=== PATIENT | female | born 2000 | race Caucasian/White ===

== ENCOUNTER 2018-01-04 17:21 | Emergency (ER) | payer OTHER ==
[~2018-01-04] VITALS: Ht 157.5 cm; Wt 68.0 kg
[2018-01-04 18:36] LABS: ABSOLUTE BASOPHIL COUNT 0.1 /CUMM (0.0-0.2); ABSOLUTE EOSINOPHIL COUNT 0.5 /CUMM (0.0-0.7); ABSOLUTE GRANULOCYTE CT 7.1 /CUMM (1.4-6.5); ABSOLUTE LYMPH COUNT 1.8 /CUMM (1.2-3.4); ABSOLUTE MONOCYTE COUNT 0.8 /CUMM (0.10-0.60); BASOPHIL % 0.5 % (0.0-2.0); EOSINOPHIL % 4.5 % (0-5); HEMATOCRIT 37.8 % (37-47); MEAN CORPUSCULAR HGB 28.8 PG (27.0-31.0); MEAN CORPUSCULAR HGB CONC 33.3 G/DL (33.0-37.0); MEAN CORPUSCULAR VOLUME 86.4 FL (81.0-99.0); MEAN PLATELET VOLUME 9.2 FL (7.4-10.4); PLATELET COUNT 272 /CUMM (130-400); RBC DISTRIBUTION WIDTH 13.1 % (11.5-14.5); RED BLOOD CELL CT 4.38 /CUMM (4.20-5.40); WHITE BLOOD CELL COUNT 10.2 /CUMM (4.8-10.8)
--- NOTE | 2018-01-04 18:45 | ED CARDIAC/CP/PALPITATIONS ---
See Addendum History of Present Illness General Chief Complaint: Chest Pain Stated Complaint: CHEST PAIN Source: patient Exam Limitations: no limitations Vital Signs & Intake/Output Vital Signs & Intake/Output Vital Signs Date Time Temp Pulse Resp B/P B/P Pulse O2 O2 Flow FiO2 Mean Ox Delivery Rate 01/04 2156 98.7 70 18 112/68 98 Room Air 01/04 1858 98 01/04 1736 97.4 63 15 119/72 97 Room Air Room Air Allergies Coded Allergies: No Known Allergies (01/04/18) Reconcile Medications Levonorgestrel-Ethin Estradiol (Aviane-28 Tablet) 0.1 MG-20 MCG TABLET 1 TAB PO DAILY CONTROL (Reported) Triage Note: PT TO ED FOR C/C OF EPIGASTRIC CHEST TIGHTNESS THAT STARTED APPROX 1 HOUR AGO WHILE AT REST. PT REPORTS SOB. PAIN WORSE WITH MOVEMENT. NON-RADIATING PAIN. PT IS ON CONTROL. -SMOKING. Triage Nurses Notes Reviewed? yes Onset: Abrupt Duration: hour(s):, constant, continues in ED Timing: recent history Quality/Severity: mild, moderate : No Patient currently breastfeeds: No HPI: 17-year-old female comes into the emergency room for severe upper abdominal pain that began about an hour prior to arrival. Located in the lower chest and upper abdomen. Some associated nausea. Pain was a sharp, 10 initially. Denies any fever chills. Denies any vomiting. Nothing seems to make the symptoms better or worse. Denies any alcohol use. Comes in for further evaluation. (Ramon Trinidad) Past History Travel History Traveled to [place] past 21 day No Medical History Any Pertinent Medical History? 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 No (Ramon Trinidad) Review of Systems Review of Systems Constitutional: Reports: no symptoms. EENTM: Reports: no symptoms. Respiratory: Reports: no symptoms. Cardiovascular: Reports: see HPI. GI: Reports: see HPI. Genitourinary: Reports: no symptoms. Musculoskeletal: Reports: no symptoms. Skin: Reports: no symptoms. Neurological/Psychological: Reports: no symptoms. Hematologic/Endocrine: Reports: no symptoms. Immunologic/Allergic: Reports: no symptoms. All Other Systems: Reviewed and Negative (Ramon Trinidad) Physical Exam Physical Exam General Appearance: well developed/nourished, no apparent distress, alert Head: atraumatic Eyes: Bilateral: normal appearance. Ears, Nose, Throat: normal ENT inspection, hearing grossly normal Neck: normal inspection Respiratory: normal breath sounds, no respiratory distress Cardiovascular: regular rate/rhythm Gastrointestinal: soft, tenderness (epigastric) Back: normal inspection Extremities: normal inspection Neurologic/Psych: awake, alert Skin: intact Core Measures ACS in differential dx? No CVA/TIA Diagnosis No Sepsis Present: No Sepsis Focused Exam Completed? No (Ramon Trinidad) Progress Differential Diagnosis: AMI, cholecystitis, musculoskeletal pain, pancreatitis, PUD/GERD Plan of Care: Orders Procedure Date/time Status Nothing by Mouth 01/05 B Active Saline Lock 01/04 2213 Active Misc Message 01/04 221 Active ED Holding Orders 01/04 2213 Active Admit to inpatient 01/04 221 Active Vital Signs 01/04 221 Active Code Status 01/04 2213 Active Add-on Test (ER Only) 01/04 2212 Active TRIGLYCERIDES 01/04 1814 Active URINE 01/04 1743 Complete URINALYSIS 01/04 1743 Complete TROPONIN LEVEL 01/04 1743 Active LIPASE 01/04 1743 Active D-DIMER 01/04 1743 Complete COMPREHENSIVE METABOLIC PANEL 01/04 1743 Active CBC WITHOUT DIFFERENTIAL 01/04 1743 Complete EKG 01/04 1728 Active Current Medications Sig/Pk Start time Last Medication Dose Stop Time Status Admin Lactated Ringer's 1,000 ML ONCE ONE 01/04 2130 AC 01/04 (Lactated Ringers) 01/05 0129 2155 Laboratory Tests 01/04/18 1831: Urine Color STRAW, Urine Clarity CLEAR, Urine pH 6.5, Ur Specific [place] <= 1.005, Urine Protein NEG, Urine Ketones NEG, Urine Nitrite NEG, Urine Bilirubin NEG, Urine Urobilinogen 0.2, Ur Leukocyte Esterase NEG, Ur Microscopic EXAM NOT REQUIRED, Urine Hemoglobin NEG, Urine Glucose NEG, Urine Test NEGATIVE 01/04/184: Anion Gap 11, Estimated GFR > 60, BUN/Creatinine Ratio 18.6, Glucose 92, Calcium 9.7, Total Bilirubin 0.3, AST 22, ALT 20, Alkaline Phosphatase 34, Troponin I < 0.01, Total Protein 6.8, Albumin 4.0, Globulin 2.8, Albumin/Globulin Ratio 1.4, Triglycerides Pending, Lipase 5692 H, D-Dimer High Sensitivty < 200, CBC w Diff NO MAN DIFF REQ, RBC 4.38, MCV 86.4, MCH 28.8, MCHC 33.3, RDW 13.1, MPV 9.2, Gran % 70.0, Lymphocytes % 17.2 L, Monocytes % 7.8, Eosinophils % 4.5, Basophils % 0.5, Absolute Granulocytes 7.1 H, Absolute Lymphocytes 1.8, Absolute Monocytes 0.8 H, Absolute Eosinophils 0.5, Absolute Basophils 0.1 Diagnostic Imaging: Viewed by Me: Radiology Read, Ultrasound. Discussed w/RAD: Radiology Read, Ultrasound. Radiology Impression: PATIENT: OJNI MOBLEY PRESENT AGE: 17 PATIENT ACCOUNT NO: [id number] : 98 LOCATION: [facility] ORDERING PHYSICIAN: Ramon VILLAR SERVICE DATE: 01/04/18 EXAM TYPE: US - US -LIMITED ABDOMEN EXAMINATION: US ABDOMEN LIMITED CLINICAL INFORMATION: Epigastric pain. Vomiting. Elevated lipase. Known pancreatitis.. COMPARISON: None TECHNIQUE: Real-time imaging of the right upper quadrant abdominal viscera. FINDINGS: PANCREAS: Normal. LIVER: Normal. The liver demonstrates normal size, contour and echogenicity. No focal lesion or intrahepatic biliary duct dilatation. GALLBLADDER: Normal. The gallbladder is physiologically distended without evidence of stones, sludge, polyps, wall thickening or pericholecystic fluid. COMMON BILE DUCT: Normal in caliber measuring 0.3 cm in diameter. RIGHT KIDNEY: Normal. No hydronephrosis. No renal calculi or focal parenchymal lesions. The kidney measures 10.0 cm in maximum dimension. FREE FLUID: None. IMPRESSION: Unremarkable right upper quadrant ultrasound. DICTATED BY: Allison Bautista MD DATE/TIME DICTATED:01/04/182054 AIRCRAFT CHARTER DISPATCHER:[place]MA DATE/TIME TRANSCRIBED:01/04/182054 CONFIDENTIAL, DO NOT COPY WITHOUT APPROPRIATE AUTHORIZATION. <Electronically signed in Other Vendor System> SIGNED BY: Allison Bautista MD 01/04/18 2100, PATIENT: JONI MOBLEY PRESENT AGE: 17 PATIENT ACCOUNT NO: [id number] : 98 LOCATION: [facility] ORDERING PHYSICIAN: Ramon VILLAR SERVICE DATE: 01/04/18 EXAM TYPE : RAD - XRY-CHEST XRAY, TWO VIEWS EXAMINATION: XR CHEST CLINICAL INFORMATION: Lower chest pain COMPARISON: None TECHNIQUE: 2 views of the chest were obtained. FINDINGS: No significant abnormality is noted involving the heart, lungs, mediastinum, bony thorax or soft tissues. IMPRESSION: Unremarkable examination. DICTATED BY: Allison Bautista MD DATE/TIME DICTATED:01/04/181920 AIRCRAFT CHARTER DISPATCHER :[place] DATE/TIME TRANSCRIBED:01/04/181920 CONFIDENTIAL, DO NOT COPY WITHOUT APPROPRIATE AUTHORIZATION. <Electronically signed in Other Vendor System> SIGNED BY: Allison Bautista MD 01/04/181924 Initial ED EKG: normal intervals, normal sinus rhythm, rate (63) (Ramon Trinidad) Departure Departure Disposition: STILL A PATIENT Condition: Stable Clinical Impression Primary Impression: Acute pancreatitis Referrals: Nguyen ANGELA,Anna Bhakta (PCP/Family) Departure Forms: Customer Survey General Discharge Information Admission Note Spoke With: Patrice Moncada MD Documentation of Exam: Documentation of any treatments & extenuating circumstances including Concerns Regarding Discharge (functional status, medication knowledge or non-compliance, living conditions, etc.) that warrant an admission rather than observation: Patient will require IV hydration. Clear liquids. GI consultation. High risk. Medically not safe for discharge. (Ramon Trinidad) PA/BOX TRUCK OWNER OPERATOR Co-Sign Statement Statement: ED Attending supervision documentation- x I saw and evaluated the patient. I have also reviewed all the pertinent lab results and diagnostic results. I agree with the findings and the plan of care as documented in the PA's/BOX TRUCK OWNER OPERATOR's documentation. abdominal pain, nausea with elevated lipase: pancreatitis [] I have reviewed the ED Record and agree with the PA's/BOX TRUCK OWNER OPERATOR's documentation. [] Additions or exceptions (if any) to the PAs/BOX TRUCK OWNER OPERATOR's note and plan are summarized below: [] (Linda ANGELA,Nato) Critical Care Note Critical Care Note Critical Care Time: non-applicable (Bhupinder VILLAR,Ramon)
--- NOTE | 2018-01-04 19:25 | RADIOLOGY REPORT ---
EXAMINATION: XR CHEST CLINICAL INFORMATION: Lower chest pain COMPARISON: None TECHNIQUE: 2 views of the chest were obtained. FINDINGS: No significant abnormality is noted involving the heart, lungs, mediastinum, bony thorax or soft tissues. IMPRESSION: Unremarkable examination.
--- NOTE | 2018-01-04 21:00 | ULTRASOUND REPORT ---
EXAMINATION: US ABDOMEN LIMITED CLINICAL INFORMATION: Epigastric pain. Vomiting. Elevated lipase. Known pancreatitis.. COMPARISON: None TECHNIQUE: Real-time imaging of the right upper quadrant abdominal viscera. FINDINGS: PANCREAS: Normal. LIVER: Normal. The liver demonstrates normal size, contour and echogenicity. No focal lesion or intrahepatic biliary duct dilatation. GALLBLADDER: Normal. The gallbladder is physiologically distended without evidence of stones, sludge, polyps, wall thickening or pericholecystic fluid. COMMON BILE DUCT: Normal in caliber measuring 0.3 cm in diameter. RIGHT KIDNEY: Normal. No hydronephrosis. No renal calculi or focal parenchymal lesions. The kidney measures 10.0 cm in maximum dimension. FREE FLUID: None. IMPRESSION: Unremarkable right upper quadrant ultrasound.
[2018-01-04] MEDS ORDERED: AVIANE-28 TABL1 EACH PO (21:05)
--- NOTE | 2018-01-04 22:50 | History & Physical ---
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
[2018-01-04 23:18] VITALS: BP 118/74
== END 2018-01-04 23:23 ==
LOC: ERH 17:21 → CANBEDREQ 23:15 → ERH 23:23
PROVIDERS: Physician Assistant Medical
DX: K85.90 Acute pancreatitis without necrosis or infection, unspecified (principal); R07.9 Chest pain, unspecified; R10.10 Upper abdominal pain, unspecified; R11.0 Nausea
CPT/HCPCS: 71046; 81003; 81025; 93005; 93010; 96360